=== PATIENT | female | born 1980 | race Caucasian/White ===

== ENCOUNTER 2017-05-06 15:27 | Emergency (ER) | payer OTHER, SELFPAY | END 2017-05-06 15:47 | disposition home or self-care (01) | LOC: SCSER 15:27 | DX: J20.9 Acute bronchitis, unspecified (principal); I10 Essential (primary) hypertension; F41.9 Anxiety disorder, unspecified; F31.9 Bipolar disorder, unspecified; F43.10 Post-traumatic stress disorder, unspecified; Z79.899 Other long term (current) drug therapy | CPT/HCPCS: 99283 ==

== ENCOUNTER 2018-05-04 14:39 | Emergency (ER) | payer SELFPAY ==
--- NOTE | 2018-05-04 16:06 | RAD ---
LEFT FOOT THREE VIEWS: HISTORY: Injury. Left foot pain. FINDINGS: No acute fractures or dislocations are identified. POS: [facility]
== END 2018-05-04 16:05 | disposition home or self-care (01) ==
LOC: SCSER 14:39
DX: S93.602A Unspecified sprain of left foot, initial encounter (principal); Z71.6 Tobacco abuse counseling; I10 Essential (primary) hypertension; F41.9 Anxiety disorder, unspecified; F31.9 Bipolar disorder, unspecified; F43.10 Post-traumatic stress disorder, unspecified; F17.210 Nicotine dependence, cigarettes, uncomplicated; Z79.899 Other long term (current) drug therapy; W19.XXXA Unspecified fall, initial encounter
CPT/HCPCS: 99406

== ENCOUNTER 2018-10-09 15:31 | Emergency (ER) | payer SELFPAY | END 2018-10-09 16:30 | disposition home or self-care (01) | LOC: SCSER 15:31 | DX: R42 Dizziness and giddiness (principal); I10 Essential (primary) hypertension; F31.9 Bipolar disorder, unspecified; F41.9 Anxiety disorder, unspecified; F43.10 Post-traumatic stress disorder, unspecified; F32.81 Premenstrual dysphoric disorder; F17.210 Nicotine dependence, cigarettes, uncomplicated; F17.290 Nicotine dependence, other tobacco product, uncomplicated | CPT/HCPCS: 99281 ==

== ENCOUNTER 2019-07-05 11:59 | Emergency (ER) | payer SELFPAY | END 2019-07-05 12:25 | disposition home or self-care (01) | LOC: ERS 11:59 | DX: R53.1 Weakness (principal); K58.9 Irritable bowel syndrome, unspecified; I10 Essential (primary) hypertension; F41.9 Anxiety disorder, unspecified; F31.9 Bipolar disorder, unspecified; F43.10 Post-traumatic stress disorder, unspecified; F17.290 Nicotine dependence, other tobacco product, uncomplicated; Z79.899 Other long term (current) drug therapy | CPT/HCPCS: 99281 ==